=== PATIENT | female | born 1945 | race Asian ===

== ENCOUNTER 2019-01-17 11:49 | Emergency (ER) | payer MEDICARE, MEDICAID ==
[~2019-01-17] VITALS: Ht 149.9 cm; Wt 49.0 kg
[2019-01-17] MEDS ORDERED: normal saline 1000ML IV soln IVB ONE (12:20)
--- NOTE | 2019-01-17 12:28 | NUR ---
pt blood glucose is 71, gave 2 orange juice boxes, will advise provider and reassess.
[2019-01-17 12:45] LABS: BASOPHILS # (AUTO) 0.1 X10'3 (0-0.2); BASOPHILS % (AUTO) 1.1 % (0-1); EOSINOPHILS # (AUTO) 0.6 X10'3 (0-0.9); EOSINOPHILS % (AUTO) 10.8 % (0-6); HEMATOCRIT 37.4 % (35.0-45.0); HEMOGLOBIN 12.7 g/dl (12.0-16.0); LYMPHOCYTES # (AUTO) 1.5 X10'3 (1.1-4.8); LYMPHOCYTES % (AUTO) 29.3 % (21-51); MEAN CORPUSCULAR HEMOGLOBIN 30.9 PG (27.0-31.0); MEAN CORPUSCULAR HGB CONC 33.8 g/dL (33.0-36.5); MEAN CORPUSCULAR VOLUME 91.4 FL (78-98); MEAN PLATELET VOLUME 9.5 FL (7.4-10.4); MONOCYTES # (AUTO) 0.4 X10'3 (0-0.9); MONOCYTES % (AUTO) 8.1 % (2-12); NEUTROPHILS # (AUTO) 2.6 X10'3 (1.8-7.7); NEUTROPHILS % (AUTO) 50.7 % (42-75); PLATELET COUNT 156 X10'3 (140-440); RED CELL DISTRIBUTION WIDTH 13.7 % (11.5-14.5); WHITE BLOOD COUNT 5.2 X10'3 (4.5-11.0)
[2019-01-17 12:52] LABS: ALANINE AMINOTRANSFERASE 19 U/L (12-78); ALBUMIN 3.5 G/DL (3.4-5.0); ALBUMIN/GLOBULIN RATIO 0.9 (1.1-1.5); ALKALINE PHOSPHATASE 50 IU/L (46-116); ANION GAP 8 (8-16); ASPARTATE AMINO TRANSFERASE 25 U/L (10-37); BILIRUBIN,TOTAL 0.2 MG/DL (0.1-1.0); BLOOD UREA NITROGEN 16 MG/DL (7-18); BUN/CREATININE RATIO 20.3 (6.6-38.0); CALCIUM 8.8 MG/DL (8.5-10.1); CHLORIDE 108 MMOL/L (99-107); CREATININE 0.79 MG/DL (0.40-0.90); GLUCOSE 80 MG/DL (70-104); POTASSIUM 3.4 MMOL/L (3.5-5.1); SODIUM 144 MMOL/L (135-145); TOTAL CARBON DIOXIDE 28.5 MMOL/L (24-32); TOTAL PROTEIN 7.3 G/DL (6.4-8.2); eGFR 71 ML/MIN
[2019-01-17 12:55] LABS: TROPONIN I < 0.04 NG/ML (0.0-0.05)
[2019-01-17] MEDS ORDERED: cloNIDine 0.1 mg tablet PO ONE (13:20)
[2019-01-17 13:26] LABS: CLARITY,URINE CLEAR (Clear); COLOR,URINE YELLOW (Yellow); GLUCOSE, URINE NEGATIVE (Neg); KETONES,URINE NEGATIVE (Neg); LEUKOCYTE ESTERASE ,URINE NEGATIVE (Neg); NITRITES, URINE NEGATIVE (Neg); OCCULT BLOOD,URINE TRACE-LYSED (Neg); PROTEIN,URINE NEGATIVE (Neg); UROBILINOGEN,URINE 0.2 E.U/dL (0.2-1.0)
[2019-01-17 13:27] LABS: UA COLLECTION TYPE CLN CATCH MIDSTREAM
[2019-01-17 13:37] LABS: SQUAMOUS EPITHELIAL CELL,UR FEW /LPF (FEW)
[2019-01-17 13:38] LABS: BACTERIA,URINE NONE SEEN /HPF (Neg); RBC,URINE NONE SEEN /HPF (0-2); WBC,URINE 0-4 /HPF (0-4)
[2019-01-17 14:11] VITALS: BP 174/84
== END 2019-01-17 14:13 | disposition home or self-care (01) ==
LOC: ER 11:51
DX: H53.8 Other visual disturbances (principal); I10 Essential (primary) hypertension
CPT/HCPCS: 36415; 70450; 71045; 80053; 81001; 82948; 84484; 85025; 85610; 93005; 99284; J7030

== ENCOUNTER 2020-12-21 16:23 | Emergency (ER) | payer MEDICARE, MEDICAID ==
[~2020-12-21] VITALS: Ht 149.9 cm; Wt 50.0 kg
[2020-12-21 17:06] LABS: BASOPHILS % (AUTO) 0.5 % (0-1); EOSINOPHILS # (AUTO) 0.5 X10'3 (0-0.9); EOSINOPHILS % (AUTO) 5.8 % (0-6); HEMATOCRIT 39.4 % (35.0-45.0); HEMOGLOBIN 13.4 g/dl (12.0-16.0); LYMPHOCYTES # (AUTO) 1.9 X10'3 (1.1-4.8); LYMPHOCYTES % (AUTO) 22.3 % (21-51); MEAN CORPUSCULAR HEMOGLOBIN 30.7 PG (27.0-31.0); MEAN CORPUSCULAR HGB CONC 34.1 g/dL (33.0-36.5); MEAN CORPUSCULAR VOLUME 90.1 FL (78-98); MEAN PLATELET VOLUME 8.7 FL (7.4-10.4); MONOCYTES # (AUTO) 0.8 X10'3 (0-0.9); MONOCYTES % (AUTO) 9.3 % (2-12); NEUTROPHILS # (AUTO) 5.2 X10'3 (1.8-7.7); NEUTROPHILS % (AUTO) 62.1 % (42-75); PLATELET COUNT 188 X10'3 (140-440); RED BLOOD COUNT 4.37 X10'6 (4.20-5.60); RED CELL DISTRIBUTION WIDTH 13.6 % (11.5-14.5); WHITE BLOOD COUNT 8.3 X10'3 (4.5-11.0)
[2020-12-21 17:20] LABS: ALANINE AMINOTRANSFERASE 18 U/L (12-78); ALBUMIN 3.2 G/DL (3.4-5.0); ALBUMIN/GLOBULIN RATIO 0.7 (1.1-1.5); ALKALINE PHOSPHATASE 67 IU/L (46-116); ANION GAP 8 (8-16); ASPARTATE AMINO TRANSFERASE 21 U/L (10-37); BILIRUBIN,TOTAL 0.3 MG/DL (0.1-1.0); BLOOD UREA NITROGEN 12 MG/DL (7-18); BUN/CREATININE RATIO 15.2 (6.6-38.0); CALCIUM 8.6 MG/DL (8.5-10.1); CHLORIDE 107 MMOL/L (99-107); CREATININE 0.79 MG/DL (0.40-0.90); GLUCOSE 116 MG/DL (70-104); LIPASE 88 U/L (73-393); POTASSIUM 3.6 MMOL/L (3.5-5.1); SODIUM 142 MMOL/L (135-145); TOTAL CARBON DIOXIDE 27.4 MMOL/L (24-32); TOTAL PROTEIN 7.6 G/DL (6.4-8.2); eGFR 71 ML/MIN
[2020-12-21] MEDS ORDERED: iohexol 300mg/ml 100ml inj. ONE (21:20)
[2020-12-21] MEDS ORDERED: ondansetron/PF 4mg/2ml inj ONE (21:35)
[2020-12-21] MEDS ORDERED: morphine 2 MG/ML inj. syringe ONE (21:35)
--- NOTE | 2020-12-21 21:39 | NUR ---
EFRAB INITIATED 18GA IN RAC, MEDICATED, TO CT.
[2020-12-21 23:51] LABS: URINE HCG NEGATIVE (NEG)
[2020-12-22 00:01] LABS: COLOR,URINE YELLOW (Yellow); UA COLLECTION TYPE CLN CATCH MIDSTREAM
[2020-12-22 00:02] LABS: CLARITY,URINE CLEAR (Clear); GLUCOSE, URINE NEGATIVE (Neg); KETONES,URINE NEGATIVE (Neg); LEUKOCYTE ESTERASE ,URINE NEGATIVE (Neg); NITRITES, URINE NEGATIVE (Neg); OCCULT BLOOD,URINE TRACE-LYSED (Neg); PROTEIN,URINE NEGATIVE (Neg); UROBILINOGEN,URINE 0.2 E.U/dL (0.2-1.0)
[2020-12-22 00:03] LABS: BACTERIA,URINE NONE SEEN /HPF (Neg); RBC,URINE 0-2 /HPF (0-2); SQUAMOUS EPITHELIAL CELL,UR FEW /LPF (FEW); WBC,URINE NONE SEEN /HPF (0-4)
[2020-12-22] MEDS ORDERED: HYDROcodone/acetaminophen 5mg/325mg tablet PO ONE (01:20)
[2020-12-22] MEDS ORDERED: metroNIDAZOLE 500mg tablet PO ONE (01:20)
[2020-12-22] MEDS ORDERED: ciprofloxacin 250mg tablet PO ONE (01:20)
[2020-12-22] MEDS ORDERED: CIPR250T4 PO (01:26)
[2020-12-22] MEDS ORDERED: METR-159 PO (01:26)
[2020-12-22 01:45] VITALS: BP 158/71
== END 2020-12-22 01:47 | disposition home or self-care (01) ==
LOC: ER 16:23
DX: K52.9 Noninfective gastroenteritis and colitis, unspecified (principal); R10.30 Lower abdominal pain, unspecified
CPT/HCPCS: 36415; 74177; 80053; 81001; 81025; 83605; 83690; 85025; 99285; J2270; J2405; Q9967; 81003; J3490

== ENCOUNTER 2023-06-14 13:26 | Outpatient (CLI) | payer MEDICARE, MEDICAID | END 2023-06-14 23:59 | disposition home or self-care (01) | LOC: RAD 13:26 | PROVIDERS: ATTEND Physician Assistant | DX: M54.2 Cervicalgia (principal) | CPT/HCPCS: 72050 ==